=== PATIENT | male | born 1980 | race Caucasian/White ===

== ENCOUNTER → 2024-07-16 | Outpatient (CLI) | payer BC ==
--- NOTE | 2024-07-17 20:03 | US ---
EXAMINATION TYPE: US liver DATE OF EXAM: 07/16/2024 COMPARISON: NONE CLINICAL INDICATION: Male, 44 years old with history of R74.8 ABNORMAL LEVELS OF OTHER SERUM ENZYMES; elevated labs twice, no symptoms TECHNIQUE: Grayscale and color Doppler imaging of the right upper quadrant was performed. FINDINGS: EXAM MEASUREMENTS: Liver Length: 16.3 cm Gallbladder Wall: 0.3 cm CBD: 0.6 cm Right Kidney: 10.8 x 5.2 x 5.2 cm Pancreas: limited portions seen Liver: difficult to penetrate, hypoechoic area seen medial right lobe, possible focal fatty sparring Gallbladder: wnl Evidence for sonographic Morillo's sign: no CBD: wnl Right Kidney: wnl IMPRESSION: Hepatic steatosis with areas of focal fatty sparing. [facility], , 07/17/2024 8:00 PM
== END | disposition home or self-care (01) ==
LOC: RADUSWWP 07:18
PROVIDERS: ATTEND Family Medicine
DX: K76.0 Fatty (change of) liver, not elsewhere classified (principal); R74.8 Abnormal levels of other serum enzymes
CPT/HCPCS: 76705

== ENCOUNTER → 2024-07-20 | Outpatient (CLI) | payer BC ==
--- NOTE | 2024-07-20 17:44 | US ---
EXAMINATION TYPE: US thyroid st tissue head/neck DATE OF EXAM: 07/20/2024 COMPARISON: NONE CLINICAL INDICATION: Male, 44 years old with history of E04.9 HypothyroidismHypothyroidism TECHNIQUE: Grayscale and color Doppler imaging of the thyroid gland. FINDINGS: GLAND SIZE: Right Lobe: 5.4 x 1.9 x 1.7 cm Overall Parenchyma: heterogeneous Left Lobe: 5.2 x 1.3 x 1.6 cm Overall Parenchyma: heterogeneous Isthmus Thickness: 0.3 cm NODULES RIGHT: # of nodules measured on right: 0 LEFT: # of nodules measured on left: 0 ISTHMUS: # of nodules measured in the isthmus: 0 Bilateral neck scanned, no evidence of lymphadenopathy. IMPRESSION: No discrete thyroid nodules. Heterogenous thyroid gland correlate with thyroid markers for thyroiditi s. [facility], , 07/20/2024 5:41 PM
== END | disposition home or self-care (01) ==
LOC: RADUSWWP 16:26
PROVIDERS: ATTEND Family Medicine
DX: E04.2 Nontoxic multinodular goiter (principal)
CPT/HCPCS: 76536

== ENCOUNTER → 2025-04-02 | Outpatient (CLI) | payer BC ==
--- NOTE | 2025-04-02 12:31 | MR ---
EXAMINATION TYPE: MR brain wo con DATE OF EXAM: 04/02/2025 11:33 AM COMPARISON: None. CLINICAL INDICATION: Male, 44 years old with history of G45.9 TRANSIENT CEREBRAL ISCHEMIC ATTACK, UNS PECIF, Intermittent Lt face and Lt arm numbness TECHNIQUE: Multiplanar and multispin-echo imaging of the brain was performed . FINDINGS: The ventricles, basal cisterns and sulci overlying the cerebral convexities are within normal limits. There is no evidence for midline shift or mass effect. Acute intracranial hemorrhage or extra-axial collection is not evident. The brain parenchyma reveals no abnormal increased signal. No acute edema is identified. The paranasal sinuses and mastoid air cells are well-aerated. IMPRESSION: Unremarkable MRI of the brain. [facility], , 04/02/2025 12:28 PM
== END | disposition home or self-care (01) ==
LOC: RADMRIMAIN 11:01
PROVIDERS: ATTEND Psychiatry & Neurology Neurology
DX: G45.9 Transient cerebral ischemic attack, unspecified (principal)
CPT/HCPCS: 70551